=== PATIENT | female | born 1980 | race Caucasian/White ===

== ENCOUNTER 2024-09-04 21:42 | Emergency (ER) | payer SELFPAY ==
[~2024-09-04] VITALS: Ht 157.5 cm; Wt 64.0 kg
[2024-09-04 21:43] VITALS: O2SAT 100
[2024-09-04 21:58] VITALS: BP 141/93; PULSE 80; RESP 18; TEMP 36.7; O2SAT 100
== END 2024-09-04 23:41 | disposition home or self-care (01) ==
LOC: ER 21:42
DX: S61.216A Laceration without foreign body of right little finger without damage to nail, initial encounter (principal); W26.0XXA Contact with knife, initial encounter; Y93.89 Activity, other specified; Y92.89 Other specified places as the place of occurrence of the external cause; Y99.8 Other external cause status
CPT/HCPCS: 12001; 99282